=== PATIENT | male | born 1965 | race Caucasian/White ===

== ENCOUNTER 2022-06-13 11:53 | Inpatient (IN) | payer MEDICAID ==
[~2022-06-13] VITALS: Ht 160 cm; Wt 62.9 kg
[2022-06-13] MEDS ORDERED: PANTOPRAZOLE SODIUM 80 MG in SODIUM CHLORIDE 0.9% 100 ML IV SCH (12:15)
[2022-06-13] MEDS ORDERED: PANTOPRAZOLE SODIUM 40 MG/VIAL IVP ONE (12:15)
[2022-06-13] MEDS ORDERED: ONDANSETRON HCL 4 MG/2 ML VIAL IVP ONE (12:15)
[2022-06-13] MEDS ORDERED: SODIUM CHLORIDE 0.9% 2,000 ML IV ONE (12:15)
[2022-06-13 13:15] LABS: BASOPHILS % (AUTO) 0.2 % (0.0-2.0); EOSINOPHILS % (AUTO) 0 % (1.0-6.0); HEMATOCRIT 37.5 % (41-53); HEMOGLOBIN 12.7 g/dL (13.5-17.5); LYMPHOCYTES # (AUTO) 1.4 K/uL (1.0-4.8); LYMPHOCYTES % (AUTO) 10.5 % (22.0-44.0); MEAN CORPUSCULAR HEMOGLOBIN 29.8 pg (26.0-34.0); MEAN CORPUSCULAR HGB CONC 33.9 G/dL (31.0-37.0); MEAN CORPUSCULAR VOLUME 88 fL (80-100); MONOCYTES # (AUTO) 1.2 K/uL (0.1-1.0); MONOCYTES % (AUTO) 8.5 % (2.0-9.0); NEUTROPHILS # (AUTO) 11.1 K/uL (1.8-7.7); NEUTROPHILS % (AUTO) 80.8 % (40.0-70.0); PLATELET COUNT (AUTO) 331 K/uL (150-450); RED BLOOD CELL COUNT(AUTO) 4.26 MIL/uL (4.50-5.90); RED CELL DISTRIBUTION WIDTH 14.1 % (11.5-14.5)
[2022-06-13 13:25] LABS: COVID AG,FIA SOURCE NASOPHARYNGEAL
[2022-06-13 13:28] LABS: CALCIUM, TOTAL 8.7 mg/dL (8.8-10.5); CHLORIDE 82 mmol/L (98-107); GLUCOSE,RANDOM 145 mg/dL (70-110); POTASSIUM 3.1 mmol/L (3.5-5.1); SODIUM SERUM 138 mmol/L (136-145); UREA NITROGEN, BLOOD 76 mg/dL (7-18)
[2022-06-13 13:32] LABS: B-TYPE NATRIURETIC PEPTIDE 47 pg/mL (0-100)
[2022-06-13 13:34] LABS: ANION GAP 9 mmol/L (8-16); GLOMERULAR FILTR. RATE CALC 31 mL/min (>60)
[2022-06-13] MEDS ORDERED: SODIUM CHLORIDE 0.9% 1,000 ML IV ONE (13:45)
[2022-06-13 13:51] LABS: % IRON SATURATION 11.3 % (30-44); CARBON DIOXIDE 46 mmol/L (22-29); IRON, SERUM 37 mcg/dL (50-175); TOTAL IRON BINDING CAPACITY 326 mcg/dL (250-450)
[2022-06-13 13:53] LABS: LACTIC ACID 4.6 mmol/L (0.4-2.0)
[2022-06-13 13:54] LABS: ALANINE AMINOTRANSFERASE 12 U/L (12-78); ALKALINE PHOSPHATASE 45 U/L (46-116); ASPARTATE AMINOTRANSFERASE 14 U/L (15-37); CREATINE KINASE, TOTAL ONLY 84 U/L (39-308); TOTAL PROTEIN, SERUM 5.7 g/dL (6.4-8.2)
[2022-06-13 13:55] LABS: ALBUMIN 2.5 g/dL (3.4-5.0); LIPASE 58 U/L (73-393)
[2022-06-13] MEDS ORDERED: POTASSIUM CHL 10 MEQ/WATER 50 ML IV ONE (14:00)
[2022-06-13 14:14] LABS: INR 1.2 (0.9-1.1)
[2022-06-13] MEDS ORDERED: MORPHINE SULFATE 2 MG/ML SYRINGE IVP PRN (15:00)
[2022-06-13] MEDS ORDERED: BISACODYL 10 MG RECTAL RECTAL SUPPOSITORY PR PRN (15:00)
[2022-06-13] MEDS ORDERED: HYDROCODONE/ACETAMINOPHEN 5-325 MG TABLET PO PRN (15:00)
[2022-06-13] MEDS ORDERED: ZOLPIDEM TARTRATE 5 MG TABLET PO PRN (15:00)
[2022-06-13] MEDS ORDERED: ONDANSETRON HCL 4 MG/2 ML VIAL IVP PRN (15:00)
[2022-06-13] MEDS ORDERED: MAGNESIUM HYDROXIDE SUSPENSION 30 ML UDCUP PO PRN (15:00)
[2022-06-13] MEDS ORDERED: HEPARIN SODIUM,PORCINE 5,000 UNITS/ML VIAL SQ SCH (16:00)
[2022-06-13] MEDS ORDERED: SODIUM CHLORIDE 0.9% 250 ML IV ONE (19:30)
[2022-06-13 19:36] LABS: HEMATOCRIT 37.9 % (41-53); HEMOGLOBIN 12.6 g/dL (13.5-17.5)
[2022-06-13] MEDS: DOCUSATE SODIUM 100 MG CAPSULE PO SCH (20:39)
[2022-06-13] MEDS: PANTOPRAZOLE SODIUM 80 MG in SODIUM CHLORIDE 0.9% 100 ML IV SCH (23:42)
[2022-06-14] MEDS ORDERED: INFLUENZA VIRUS VACCINE QVS 2022-23 (6MO+)/PF 60 MCG/0.5 ML SYRINGE IM. ONE (00:30)
[2022-06-14 00:33] VITALS: BP 93/63
[2022-06-14 05:50] VITALS: BP 99/59
[2022-06-14 06:53] LABS: APPEARANCE,URINE CLEAR (CLEAR); BILIRUBIN,URINE NEGATIVE (NEGATIVE); GLUCOSE, URINE (UA) TRACE mg/dL (NEGATIVE); LEUKOCYTE ESTERASE ,URINE NEGATIVE (NEGATIVE); NITRATE,URINE NEGATIVE (NEGATIVE); OCCULT BLOOD,URINE NEGATIVE (NEGATIVE); PROTEIN,URINE TRACE mg/dL (NEGATIVE); SPECIFIC GRAVITIY, URINE 1.019 (1.003-1.030)
[2022-06-14 06:57] LABS: AMPHET/METH SCREEN,URINE NEGATIVE (NEGATIVE); BARBITURATE SCREEN, URINE NEGATIVE (NEGATIVE); BENZODIAZEPINES SCREEN,URINE NEGATIVE (NEGATIVE); CANNABINOID SCREEN,URINE NEGATIVE (NEGATIVE); COCAINE SCREEN,URINE NEGATIVE (NEGATIVE); METHADONE SCREEN, URINE NEGATIVE (NEGATIVE); OPIATE SCREEN,URINE NEGATIVE (NEGATIVE)
[2022-06-14 06:58] LABS: PHENCYCLIDINE SCREEN,URINE NEGATIVE (NEGATIVE)
[2022-06-14 07:12] LABS: BACTERIA,URINE None Seen /HPF (None Seen); RBC,URINE None Seen /HPF (0-2); WBC,URINE None Seen /HPF (0-5)
[2022-06-14 07:18] LABS: BASOPHILS % (AUTO) 0.3 % (0.0-2.0); EOSINOPHILS % (AUTO) 0.7 % (1.0-6.0); HEMATOCRIT 35.1 % (41-53); HEMOGLOBIN 11.8 g/dL (13.5-17.5); LYMPHOCYTES # (AUTO) 2.2 K/uL (1.0-4.8); LYMPHOCYTES % (AUTO) 25.7 % (22.0-44.0); MEAN CORPUSCULAR HEMOGLOBIN 29.9 pg (26.0-34.0); MEAN CORPUSCULAR HGB CONC 33.4 G/dL (31.0-37.0); MEAN CORPUSCULAR VOLUME 90 fL (80-100); MONOCYTES # (AUTO) 0.6 K/uL (0.1-1.0); MONOCYTES % (AUTO) 6.9 % (2.0-9.0); NEUTROPHILS # (AUTO) 5.6 K/uL (1.8-7.7); NEUTROPHILS % (AUTO) 66.4 % (40.0-70.0); PLATELET COUNT (AUTO) 247 K/uL (150-450); RED BLOOD CELL COUNT(AUTO) 3.93 MIL/uL (4.50-5.90); RED CELL DISTRIBUTION WIDTH 14.6 % (11.5-14.5)
[2022-06-14 07:48] LABS: CALCIUM, TOTAL 8.2 mg/dL (8.8-10.5); CREATININE 1.4 mg/dL (0.60-1.30)
[2022-06-14 07:55] VITALS: BP 85/52
[2022-06-14] MEDS: DOCUSATE SODIUM 100 MG CAPSULE PO SCH ×2 (08:57→20:26)
[2022-06-14] MEDS ORDERED: PANTOPRAZOLE SODIUM 40 MG DR TABLET PO SCH (09:00)
[2022-06-14] MEDS: PANTOPRAZOLE SODIUM 80 MG in SODIUM CHLORIDE 0.9% 100 ML IV SCH ×2 (09:07→18:35)
[2022-06-14 11:45] VITALS: BP 85/53
[2022-06-14] MEDS ORDERED: POTASSIUM CHLORIDE 10% 40 MEQ/30 ML LIQUID UDCUP PO ONE (13:45)
[2022-06-14 15:35] VITALS: BP 88/56
[2022-06-14] MEDS ORDERED: SODIUM CHLORIDE 0.9% 1,000 ML IV ONE (16:30)
[2022-06-14 19:57] VITALS: BP 94/59
[2022-06-14] MEDS ORDERED: DEXTROSE 5%-0.45% SODIUM CHL 1,000 ML IV PRN (23:55)
[2022-06-15 00:37] VITALS: BP 98/61
[2022-06-15 03:59] VITALS: BP 90/56
[2022-06-15] MEDS: PANTOPRAZOLE SODIUM 80 MG in SODIUM CHLORIDE 0.9% 100 ML IV SCH (04:29)
[2022-06-15 06:39] LABS: BASOPHILS % (AUTO) 0.4 % (0.0-2.0); EOSINOPHILS % (AUTO) 1.5 % (1.0-6.0); HEMATOCRIT 30.7 % (41-53); HEMOGLOBIN 10.5 g/dL (13.5-17.5); LYMPHOCYTES % (AUTO) 25.9 % (22.0-44.0); MEAN CORPUSCULAR HEMOGLOBIN 30.4 pg (26.0-34.0); MEAN CORPUSCULAR HGB CONC 34.3 G/dL (31.0-37.0); MEAN CORPUSCULAR VOLUME 89 fL (80-100); MONOCYTES # (AUTO) 0.5 K/uL (0.1-1.0); NEUTROPHILS # (AUTO) 5.2 K/uL (1.8-7.7); NEUTROPHILS % (AUTO) 66.2 % (40.0-70.0); PLATELET COUNT (AUTO) 226 K/uL (150-450); RED BLOOD CELL COUNT(AUTO) 3.46 MIL/uL (4.50-5.90); RED CELL DISTRIBUTION WIDTH 13.9 % (11.5-14.5)
[2022-06-15 06:42] LABS: ANION GAP 2 mmol/L (8-16); CALCIUM, TOTAL 8.1 mg/dL (8.8-10.5); CARBON DIOXIDE 39 mmol/L (22-29); CHLORIDE 93 mmol/L (98-107); CREATININE 1.04 mg/dL (0.60-1.30); GLUCOSE,RANDOM 109 mg/dL (70-110); SODIUM SERUM 134 mmol/L (136-145); UREA NITROGEN, BLOOD 30 mg/dL (7-18)
[2022-06-15 06:48] LABS: GLOMERULAR FILTR. RATE CALC > 60 mL/min (>60)
[2022-06-15 07:48] VITALS: BP 108/70
[2022-06-15] MEDS: DOCUSATE SODIUM 100 MG CAPSULE PO SCH ×2 (08:48→20:10)
[2022-06-15 11:24] VITALS: BP 90/56
[2022-06-15] MEDS ORDERED: SODIUM CHLORIDE 0.9% 1,000 ML ONE (12:39)
[2022-06-15] MEDS ORDERED: SODIUM CHLORIDE 0.9% 1,000 ML IV ONE (13:00)
[2022-06-15] MEDS ORDERED: IOHEXOL 350 MG/ML 100 ML VIAL ONE (15:27)
[2022-06-15] MEDS ORDERED: SODIUM CHLORIDE 0.9% 100 ML ONE (15:28)
[2022-06-15] MEDS: PANTOPRAZOLE SODIUM 40 MG/VIAL IVP SCH (20:10)
[2022-06-15 20:39] VITALS: BP 86/50
[2022-06-15] MEDS ORDERED: POTASSIUM CHLORIDE 20 MEQ ER TABLET PO ONE (21:00)
[2022-06-15] MEDS ORDERED: DEXTROSE 5%-0.45% SODIUM CHL 1,000 ML IV ONE (21:00)
[2022-06-15] MEDS ORDERED: SODIUM CHLORIDE 0.9% 250 ML IV ONE (21:00)
[2022-06-16] VITALS (7 sets, daily range): BP systolic 92–107; BP diastolic 50–72
[2022-06-16 06:20] LABS: BASOPHILS % (AUTO) 0.4 % (0.0-2.0); EOSINOPHILS % (AUTO) 1.6 % (1.0-6.0); HEMATOCRIT 29.8 % (41-53); HEMOGLOBIN 10.4 g/dL (13.5-17.5); LYMPHOCYTES # (AUTO) 1.8 K/uL (1.0-4.8); LYMPHOCYTES % (AUTO) 25.6 % (22.0-44.0); MEAN CORPUSCULAR HEMOGLOBIN 30.7 pg (26.0-34.0); MEAN CORPUSCULAR HGB CONC 34.7 G/dL (31.0-37.0); MEAN CORPUSCULAR VOLUME 88 fL (80-100); MONOCYTES # (AUTO) 0.5 K/uL (0.1-1.0); MONOCYTES % (AUTO) 6.3 % (2.0-9.0); NEUTROPHILS # (AUTO) 4.8 K/uL (1.8-7.7); NEUTROPHILS % (AUTO) 66.1 % (40.0-70.0); PLATELET COUNT (AUTO) 217 K/uL (150-450); RED BLOOD CELL COUNT(AUTO) 3.37 MIL/uL (4.50-5.90); RED CELL DISTRIBUTION WIDTH 14.1 % (11.5-14.5)
[2022-06-16 06:41] LABS: ANION GAP 5 mmol/L (8-16); CALCIUM, TOTAL 7.8 mg/dL (8.8-10.5); CARBON DIOXIDE 32 mmol/L (22-29); CHLORIDE 98 mmol/L (98-107); GLUCOSE,RANDOM 107 mg/dL (70-110); SODIUM SERUM 135 mmol/L (136-145); UREA NITROGEN, BLOOD 15 mg/dL (7-18)
[2022-06-16 07:01] LABS: GLOMERULAR FILTR. RATE CALC > 60 mL/min (>60); POTASSIUM 2.4 mmol/L (3.5-5.1)
[2022-06-16] MEDS: POTASSIUM CHL 10 MEQ/WATER 50 ML IV SCH ×6 (08:00→12:45)
[2022-06-16] MEDS: DOCUSATE SODIUM 100 MG CAPSULE PO SCH ×2 (09:00→20:26)
[2022-06-16] MEDS: PANTOPRAZOLE SODIUM 40 MG/VIAL IVP SCH ×2 (09:46→20:27)
[2022-06-16] MEDS ORDERED: MAGNESIUM SULFATE 2 GM, MVI, ADULT NO.1 WITH VIT K 10 ML, THIAMINE 100 MG, FOLIC ACID 1... IV ONE ×5 (10:30)
[2022-06-16 23:56] LABS: GLUCOMETER DEV NAME(LOC) 5N.1C; GLUCOSE,POINT OF CARE 71 MG/DL (70-110)
[2022-06-17] MEDS ORDERED: PROPOFOL 1% 20 ML VIAL IVP ONE (06:03)
[2022-06-17] MEDS ORDERED: LIDOCAINE/PF 2% 5 ML VIAL IM ONE (06:03)
[2022-06-17 07:42] VITALS: BP 102/62
[2022-06-17] MEDS: DOCUSATE SODIUM 100 MG CAPSULE PO SCH ×2 (08:28→21:35)
[2022-06-17] MEDS: PANTOPRAZOLE SODIUM 40 MG/VIAL IVP SCH ×2 (08:28→21:35)
[2022-06-17 11:21] VITALS: BP 103/70
[2022-06-17 15:46] VITALS: BP 100/68
[2022-06-17 20:11] VITALS: BP 95/66
[2022-06-18 00:30] VITALS: BP 105/67
[2022-06-18 04:48] VITALS: BP 100/60
[2022-06-18 07:42] VITALS: BP 104/69
[2022-06-18 08:00] VITALS: BP 114/71
[2022-06-18] MEDS: DOCUSATE SODIUM 100 MG CAPSULE PO SCH ×2 (09:00→20:35)
[2022-06-18] MEDS: PANTOPRAZOLE SODIUM 40 MG/VIAL IVP SCH ×2 (09:52→20:37)
[2022-06-18 15:55] VITALS: BP 107/67
[2022-06-18 20:12] VITALS: BP 115/91
[2022-06-19 04:11] VITALS: BP 99/62
[2022-06-19 07:41] VITALS: BP 105/47
[2022-06-19] MEDS: DOCUSATE SODIUM 100 MG CAPSULE PO SCH ×2 (09:00→20:54)
[2022-06-19] MEDS: PANTOPRAZOLE SODIUM 40 MG/VIAL IVP SCH ×2 (09:11→20:54)
[2022-06-19 15:30] VITALS: BP 122/86
[2022-06-19 20:00] VITALS: BP 108/73
[2022-06-20 05:23] VITALS: BP 111/78
[2022-06-20 08:12] VITALS: BP 94/64
[2022-06-20] MEDS ORDERED: SODIUM CHLORIDE 0.9% 1,000 ML ONE (08:37)
[2022-06-20] MEDS: DOCUSATE SODIUM 100 MG CAPSULE PO SCH ×2 (08:42→20:48)
[2022-06-20] MEDS: PANTOPRAZOLE SODIUM 40 MG/VIAL IVP SCH ×2 (08:42→20:38)
[2022-06-20] MEDS ORDERED: DEXTROSE 5%-0.45% SODIUM CHL 1,000 ML IV ONE (11:15)
[2022-06-20] MEDS: POTASSIUM CHL 20 MEQ/D5-NS 1,000 ML IV SCH ×2 (11:29→20:45)
[2022-06-20 16:07] VITALS: BP 87/51
[2022-06-20 19:20] VITALS: BP 99/65
[2022-06-21 04:06] VITALS: BP 111/77
[2022-06-21 05:48] LABS: HEMATOCRIT 27.5 % (41-53); HEMOGLOBIN 9.4 g/dL (13.5-17.5); MEAN CORPUSCULAR HEMOGLOBIN 30.5 pg (26.0-34.0); MEAN CORPUSCULAR HGB CONC 34.3 G/dL (31.0-37.0); MEAN CORPUSCULAR VOLUME 89 fL (80-100); PLATELET COUNT (AUTO) 207 K/uL (150-450); RED CELL DISTRIBUTION WIDTH 14.5 % (11.5-14.5)
[2022-06-21 06:04] LABS: ALANINE AMINOTRANSFERASE 10 U/L (12-78); ALBUMIN 1.7 g/dL (3.4-5.0); ALKALINE PHOSPHATASE 35 U/L (46-116); ANION GAP 5 mmol/L (8-16); ASPARTATE AMINOTRANSFERASE 12 U/L (15-37); BILIRUBIN,TOTAL 0.3 mg/dL (0.1-1.0); CALCIUM, TOTAL 7.4 mg/dL (8.8-10.5); CARBON DIOXIDE 26 mmol/L (22-29); CHLORIDE 110 mmol/L (98-107); CREATININE 0.63 mg/dL (0.60-1.30); GLUCOSE,RANDOM 149 mg/dL (70-110); POTASSIUM 4.3 mmol/L (3.5-5.1); SODIUM SERUM 141 mmol/L (136-145); TOTAL PROTEIN, SERUM 4.7 g/dL (6.4-8.2); UREA NITROGEN, BLOOD 13 mg/dL (7-18)
[2022-06-21 06:09] LABS: GLOMERULAR FILTR. RATE CALC > 60 mL/min (>60)
[2022-06-21] MEDS: POTASSIUM CHL 20 MEQ/D5-NS 1,000 ML IV SCH ×2 (06:26→21:45)
[2022-06-21 07:46] LABS: BAND NEUTROPHILS % (MANUAL) 4 % (0-5); LYMPHOCYTES % (MANUAL) 47 % (22-44); MONOCYTES % (MANUAL) 4 % (2-9); SEGMENTED NEUTROPHILS % 45 % (40-70)
[2022-06-21] MEDS: DOCUSATE SODIUM 100 MG CAPSULE PO SCH ×2 (07:48→21:00)
[2022-06-21 08:00] VITALS: BP 86/48
[2022-06-21] MEDS: PANTOPRAZOLE SODIUM 40 MG/VIAL IVP SCH ×2 (08:32→21:05)
[2022-06-21] MEDS ORDERED: HYDROmorphone HCL 2 MG/ML SYRINGE IVP ONE (12:00)
[2022-06-21] MEDS ORDERED: ROCURONIUM BROMIDE 10 MG/ML 5 ML VIAL IVP ONE (12:00)
[2022-06-21] MEDS ORDERED: FentaNYL CITRATE PF 100 MCG/2 ML VIAL IVP ONE (12:00)
[2022-06-21] MEDS ORDERED: KETOROLAC TROMETHAMINE 60 MG/2 ML VIAL IM ONE (12:00)
[2022-06-21] MEDS ORDERED: DEXAMETHASONE SOD PHOS 4 MG/ML VIAL IVP ONE (12:00)
[2022-06-21] MEDS ORDERED: EPHEDrine SULFATE 50 MG/ML VIAL IM ONE (12:00)
[2022-06-21] MEDS ORDERED: PHENYLEPHRINE HCL 10 MG/ML VIAL IVP ONE (12:00)
[2022-06-21] MEDS ORDERED: 0.9% SODIUM CHLORIDE 10 ML VIAL IVP ONE (12:00)
[2022-06-21] MEDS ORDERED: ONDANSETRON HCL 4 MG/2 ML VIAL IVP ONE (12:00)
[2022-06-21] MEDS ORDERED: LIDOCAINE/PF 2% 5 ML SYRINGE IVP ONE (12:00)
[2022-06-21] MEDS ORDERED: PROPOFOL 1% 20 ML VIAL IVP ONE (12:00)
[2022-06-21] MEDS ORDERED: MIDAZOLAM HCL 2 MG/2 ML VIAL IVP ONE (12:00)
[2022-06-21] MEDS ORDERED: RINGERS SOLUTION,LACTATED 1,000 ML IV ONE ×5 (12:13→15:49)
[2022-06-21 12:39] VITALS: BP 96/62
[2022-06-21] MEDS ORDERED: BUPIVACAINE HCL/PF 0.5% 30 ML VIAL ONE ×2 (12:39→14:42)
[2022-06-21] MEDS ORDERED: BUPIVACAINE LIPOSOME/PF 1.3%-13.3MG/ML SUSPENSION 20 ML VIAL INJ ONE (12:45)
[2022-06-21] MEDS ORDERED: LIDOCAINE/PF 2% 5 ML VIAL ONE (14:03)
[2022-06-21] MEDS ORDERED: PHENYLEPHRINE 200 MG/D5%-WATER 250 ML IV PRN (15:00)
[2022-06-21] MEDS ORDERED: ALBUMIN HUMAN 25%-12.5GM/50ML 50 ML ONE (15:31)
[2022-06-21] MEDS ORDERED: ALBUMIN HUMAN 5%-12.5GM/250ML 0 ML IV ONE (15:31)
[2022-06-21] MEDS ORDERED: SODIUM CHLORIDE 0.9% 1,000 ML ONE (15:49)
[2022-06-21] MEDS ORDERED: FentaNYL CITRATE PF 100 MCG/2 ML VIAL IVP PRN (17:30)
[2022-06-21] MEDS ORDERED: HYDROmorphone HCL 2 MG/ML SYRINGE IVP PRN ×2 (17:30→19:15)
[2022-06-21] MEDS ORDERED: MEPERIDINE-PF 25 MG/ML VIAL IVP PRN (17:30)
[2022-06-21] MEDS ORDERED: SUGAMMADEX SODIUM 200 MG/2 ML VIAL IVP ONE (18:56)
[2022-06-21] MEDS: OXYGEN THERAPY IH SCH (20:00)
[2022-06-21 20:15] VITALS: BP 89/62
[2022-06-21] MEDS: ETHYL ALCOHOL 62% ANTISEPTIC NASAL SANITIZER 0.6 ML AMPUL NASAL SCH (21:45)
[2022-06-22] VITALS: BP 95/60
[2022-06-22 04:00] VITALS: BP 84/52
[2022-06-22] MEDS: POTASSIUM CHL 20 MEQ/D5-NS 1,000 ML IV SCH ×2 (06:58→18:55)
[2022-06-22 08:00] VITALS: BP 104/69
[2022-06-22] MEDS: OXYGEN THERAPY IH SCH ×2 (08:00→20:51)
[2022-06-22] MEDS: DOCUSATE SODIUM 100 MG CAPSULE PO SCH ×3 (09:00→20:52)
[2022-06-22] MEDS: PANTOPRAZOLE SODIUM 40 MG/VIAL IVP SCH ×3 (09:00→20:52)
[2022-06-22] MEDS: ETHYL ALCOHOL 62% ANTISEPTIC NASAL SANITIZER 0.6 ML AMPUL NASAL SCH ×2 (09:20→20:52)
[2022-06-22 10:01] LABS: BASOPHILS % (AUTO) 0.1 % (0.0-2.0); EOSINOPHILS % (AUTO) 0 % (1.0-6.0); HEMATOCRIT 22.9 % (41-53); HEMOGLOBIN 7.7 g/dL (13.5-17.5); LYMPHOCYTES # (AUTO) 1.2 K/uL (1.0-4.8); LYMPHOCYTES % (AUTO) 11.5 % (22.0-44.0); MEAN CORPUSCULAR HEMOGLOBIN 30.3 pg (26.0-34.0); MEAN CORPUSCULAR HGB CONC 33.8 G/dL (31.0-37.0); MEAN CORPUSCULAR VOLUME 90 fL (80-100); MONOCYTES # (AUTO) 0.8 K/uL (0.1-1.0); MONOCYTES % (AUTO) 7.4 % (2.0-9.0); NEUTROPHILS # (AUTO) 8.7 K/uL (1.8-7.7); PLATELET COUNT (AUTO) 237 K/uL (150-450); RED BLOOD CELL COUNT(AUTO) 2.55 MIL/uL (4.50-5.90)
[2022-06-22 10:14] LABS: ANION GAP 1 mmol/L (8-16); CARBON DIOXIDE 27 mmol/L (22-29); CHLORIDE 111 mmol/L (98-107); CREATININE 0.81 mg/dL (0.60-1.30); GLUCOSE,RANDOM 165 mg/dL (70-110); POTASSIUM 4.4 mmol/L (3.5-5.1); SODIUM SERUM 139 mmol/L (136-145); UREA NITROGEN, BLOOD 14 mg/dL (7-18)
[2022-06-22 10:16] LABS: GLOMERULAR FILTR. RATE CALC > 60 mL/min (>60)
[2022-06-22 13:46] VITALS: BP 107/73
[2022-06-22 14:50] VITALS: BP 99/74
[2022-06-22 20:21] VITALS: BP 98/52
[2022-06-23] VITALS: BP 96/55
[2022-06-23] MEDS: POTASSIUM CHL 20 MEQ/D5-NS 1,000 ML IV SCH ×4 (04:53→23:37)
[2022-06-23 05:12] VITALS: BP 106/69
[2022-06-23 07:17] VITALS: BP 125/75
[2022-06-23] MEDS: PANTOPRAZOLE SODIUM 40 MG/VIAL IVP SCH ×3 (09:00→21:13)
[2022-06-23] MEDS: OXYGEN THERAPY IH SCH ×2 (09:04→21:13)
[2022-06-23] MEDS: DOCUSATE SODIUM 100 MG CAPSULE PO SCH ×2 (09:10→21:13)
[2022-06-23] MEDS: ETHYL ALCOHOL 62% ANTISEPTIC NASAL SANITIZER 0.6 ML AMPUL NASAL SCH ×2 (09:10→21:13)
[2022-06-23 09:16] LABS: BASOPHILS % (AUTO) 0.1 % (0.0-2.0); EOSINOPHILS % (AUTO) 0.1 % (1.0-6.0); HEMATOCRIT 22.4 % (41-53); HEMOGLOBIN 7.5 g/dL (13.5-17.5); LYMPHOCYTES # (AUTO) 1.5 K/uL (1.0-4.8); LYMPHOCYTES % (AUTO) 11.6 % (22.0-44.0); MEAN CORPUSCULAR HEMOGLOBIN 30.1 pg (26.0-34.0); MEAN CORPUSCULAR HGB CONC 33.5 G/dL (31.0-37.0); MEAN CORPUSCULAR VOLUME 90 fL (80-100); MONOCYTES # (AUTO) 0.8 K/uL (0.1-1.0); MONOCYTES % (AUTO) 6.6 % (2.0-9.0); NEUTROPHILS # (AUTO) 10.5 K/uL (1.8-7.7); NEUTROPHILS % (AUTO) 81.6 % (40.0-70.0); PLATELET COUNT (AUTO) 280 K/uL (150-450); RED BLOOD CELL COUNT(AUTO) 2.49 MIL/uL (4.50-5.90); RED CELL DISTRIBUTION WIDTH 15.3 % (11.5-14.5)
[2022-06-23 09:24] LABS: ANION GAP 5 mmol/L (8-16); CALCIUM, TOTAL 7.4 mg/dL (8.8-10.5); CARBON DIOXIDE 24 mmol/L (22-29); CHLORIDE 112 mmol/L (98-107); CREATININE 0.65 mg/dL (0.60-1.30); GLUCOSE,RANDOM 147 mg/dL (70-110); POTASSIUM 4.9 mmol/L (3.5-5.1); SODIUM SERUM 141 mmol/L (136-145); UREA NITROGEN, BLOOD 12 mg/dL (7-18)
[2022-06-23 09:26] LABS: GLOMERULAR FILTR. RATE CALC > 60 mL/min (>60)
[2022-06-23 11:19] VITALS: BP 118/77
[2022-06-23 12:26] LABS: GLUCOMETER DEV NAME(LOC) 5N.1C; GLUCOSE,POINT OF CARE 121 MG/DL (70-110)
[2022-06-23 13:00] LABS: PHOSPHORUS 2.4 mg/dL (2.5-4.9)
[2022-06-23] MEDS ORDERED: MAGNESIUM SULFATE 1 GM in DEXTROSE 5%-WATER 50 ML IV ONE (15:15)
[2022-06-23 15:18] VITALS: BP 110/72
[2022-06-23] MEDS ORDERED: POTASSIUM PHOS,M-BASIC-D-BASIC 10 MMOL in DEXTROSE 5%-WATER 100 ML IV ONE (16:00)
[2022-06-23] MEDS ORDERED: SODIUM CHLORIDE 0.9% 500 ML IV ONE (16:30)
[2022-06-23 20:01] LABS: GLUCOMETER DEV NAME(LOC) 5N.1C; GLUCOSE,POINT OF CARE 129 MG/DL (70-110)
[2022-06-23 20:10] VITALS: BP 119/74
[2022-06-24 00:45] VITALS: BP 122/74
[2022-06-24 04:36] LABS: GLUCOMETER DEV NAME(LOC) 5N.1C; GLUCOSE,POINT OF CARE 123 MG/DL (70-110)
[2022-06-24 04:41] VITALS: BP 117/76
[2022-06-24 06:46] LABS: GLUCOMETER DEV NAME(LOC) 5N.1C; GLUCOSE,POINT OF CARE 141 MG/DL (70-110)
[2022-06-24] MEDS: OXYGEN THERAPY IH SCH ×2 (08:00→22:01)
[2022-06-24 08:10] VITALS: BP 119/80
[2022-06-24] MEDS: PANTOPRAZOLE SODIUM 40 MG/VIAL IVP SCH ×3 (09:00→22:02)
[2022-06-24] MEDS: DOCUSATE SODIUM 100 MG CAPSULE PO SCH ×2 (09:00→22:02)
[2022-06-24] MEDS: ETHYL ALCOHOL 62% ANTISEPTIC NASAL SANITIZER 0.6 ML AMPUL NASAL SCH ×2 (09:19→22:01)
[2022-06-24 09:37] LABS: BASOPHILS % (AUTO) 0.2 % (0.0-2.0); EOSINOPHILS % (AUTO) 0.4 % (1.0-6.0); HEMATOCRIT 21.4 % (41-53); HEMOGLOBIN 7.3 g/dL (13.5-17.5); LYMPHOCYTES # (AUTO) 1.3 K/uL (1.0-4.8); LYMPHOCYTES % (AUTO) 10.4 % (22.0-44.0); MEAN CORPUSCULAR HEMOGLOBIN 30.2 pg (26.0-34.0); MEAN CORPUSCULAR VOLUME 89 fL (80-100); MONOCYTES # (AUTO) 0.5 K/uL (0.1-1.0); MONOCYTES % (AUTO) 4.2 % (2.0-9.0); NEUTROPHILS # (AUTO) 10.7 K/uL (1.8-7.7); NEUTROPHILS % (AUTO) 84.8 % (40.0-70.0); PLATELET COUNT (AUTO) 300 K/uL (150-450); RED BLOOD CELL COUNT(AUTO) 2.41 MIL/uL (4.50-5.90); RED CELL DISTRIBUTION WIDTH 15.3 % (11.5-14.5)
[2022-06-24 09:46] LABS: ANION GAP 5 mmol/L (8-16); CALCIUM, TOTAL 7.3 mg/dL (8.8-10.5); CARBON DIOXIDE 24 mmol/L (22-29); CHLORIDE 107 mmol/L (98-107); CREATININE 0.57 mg/dL (0.60-1.30); GLOMERULAR FILTR. RATE CALC > 60 mL/min (>60); GLUCOSE,RANDOM 141 mg/dL (70-110); SODIUM SERUM 136 mmol/L (136-145); UREA NITROGEN, BLOOD 8 mg/dL (7-18)
[2022-06-24 11:40] VITALS: BP 136/73
[2022-06-24 14:17] LABS: GLUCOMETER DEV NAME(LOC) 5S.1B; GLUCOSE,POINT OF CARE 133 MG/DL (70-110)
[2022-06-24 14:51] VITALS: BP 101/65
[2022-06-24 18:46] LABS: GLUCOMETER DEV NAME(LOC) 5N.1C; GLUCOSE,POINT OF CARE 118 MG/DL (70-110)
[2022-06-24 20:14] VITALS: BP 101/62
[2022-06-25 00:23] VITALS: BP 103/70
[2022-06-25 04:29] VITALS: BP 98/61
[2022-06-25 06:47] LABS: GLUCOMETER DEV NAME(LOC) 5S.1B; GLUCOSE,POINT OF CARE 117 MG/DL (70-110)
[2022-06-25 06:47] LABS: GLUCOMETER DEV NAME(LOC) 5S.1B; GLUCOSE,POINT OF CARE 123 MG/DL (70-110)
[2022-06-25 07:49] VITALS: BP 117/67
[2022-06-25] MEDS: ETHYL ALCOHOL 62% ANTISEPTIC NASAL SANITIZER 0.6 ML AMPUL NASAL SCH ×2 (07:56→20:32)
[2022-06-25] MEDS: PANTOPRAZOLE SODIUM 40 MG/VIAL IVP SCH ×3 (08:11→20:32)
[2022-06-25] MEDS: OXYGEN THERAPY IH SCH ×2 (08:11→20:31)
[2022-06-25 09:50] LABS: BASOPHILS % (AUTO) 0.2 % (0.0-2.0); EOSINOPHILS % (AUTO) 0.5 % (1.0-6.0); HEMATOCRIT 23.2 % (41-53); HEMOGLOBIN 7.8 g/dL (13.5-17.5); LYMPHOCYTES # (AUTO) 1.7 K/uL (1.0-4.8); MEAN CORPUSCULAR HGB CONC 33.5 G/dL (31.0-37.0); MEAN CORPUSCULAR VOLUME 90 fL (80-100); MONOCYTES # (AUTO) 0.6 K/uL (0.1-1.0); MONOCYTES % (AUTO) 4.7 % (2.0-9.0); NEUTROPHILS # (AUTO) 10.4 K/uL (1.8-7.7); NEUTROPHILS % (AUTO) 81.6 % (40.0-70.0); PLATELET COUNT (AUTO) 383 K/uL (150-450); RED CELL DISTRIBUTION WIDTH 14.8 % (11.5-14.5)
[2022-06-25 10:18] LABS: ANION GAP 9 mmol/L (8-16); CALCIUM, TOTAL 7.4 mg/dL (8.8-10.5); CARBON DIOXIDE 23 mmol/L (22-29); CHLORIDE 103 mmol/L (98-107); CREATININE 0.61 mg/dL (0.60-1.30); GLUCOSE,RANDOM 136 mg/dL (70-110); POTASSIUM 4.1 mmol/L (3.5-5.1); SODIUM SERUM 135 mmol/L (136-145); UREA NITROGEN, BLOOD 13 mg/dL (7-18)
[2022-06-25 10:23] LABS: GLOMERULAR FILTR. RATE CALC > 60 mL/min (>60)
[2022-06-25 11:53] VITALS: BP 96/56
[2022-06-25 16:07] VITALS: BP 94/61
[2022-06-25 18:01] LABS: GLUCOMETER DEV NAME(LOC) 5N.1C; GLUCOSE,POINT OF CARE 130 MG/DL (70-110)
[2022-06-25] MEDS: DOCUSATE SODIUM 100 MG/10 ML LIQUID UDCUP JT SCH (20:32)
[2022-06-25 20:33] VITALS: BP 115/63
[2022-06-26] VITALS (7 sets, daily range): BP systolic 91–105; BP diastolic 55–68
[2022-06-26] MEDS ORDERED: DIATRIZOATE MEGLU/SOD 660/100 MG/ML 120 ML BOTTLE ONE (08:08)
[2022-06-26] MEDS: PANTOPRAZOLE SODIUM 40 MG/VIAL IVP SCH ×2 (08:29→20:16)
[2022-06-26] MEDS: ETHYL ALCOHOL 62% ANTISEPTIC NASAL SANITIZER 0.6 ML AMPUL NASAL SCH ×2 (08:34→20:16)
[2022-06-26] MEDS: DOCUSATE SODIUM 100 MG/10 ML LIQUID UDCUP JT SCH ×2 (08:38→20:16)
[2022-06-26 08:50] LABS: BASOPHILS % (AUTO) 0.2 % (0.0-2.0); EOSINOPHILS % (AUTO) 0.7 % (1.0-6.0); HEMATOCRIT 21.6 % (41-53); HEMOGLOBIN 7.4 g/dL (13.5-17.5); LYMPHOCYTES # (AUTO) 1.6 K/uL (1.0-4.8); LYMPHOCYTES % (AUTO) 15.9 % (22.0-44.0); MEAN CORPUSCULAR HEMOGLOBIN 30.2 pg (26.0-34.0); MEAN CORPUSCULAR HGB CONC 34.3 G/dL (31.0-37.0); MEAN CORPUSCULAR VOLUME 88 fL (80-100); MONOCYTES # (AUTO) 0.6 K/uL (0.1-1.0); MONOCYTES % (AUTO) 6.3 % (2.0-9.0); NEUTROPHILS # (AUTO) 7.6 K/uL (1.8-7.7); NEUTROPHILS % (AUTO) 76.9 % (40.0-70.0); PLATELET COUNT (AUTO) 338 K/uL (150-450); RED BLOOD CELL COUNT(AUTO) 2.45 MIL/uL (4.50-5.90); RED CELL DISTRIBUTION WIDTH 14.9 % (11.5-14.5)
[2022-06-26] MEDS: OXYGEN THERAPY IH SCH ×2 (08:52→20:16)
[2022-06-26 09:06] LABS: ALKALINE PHOSPHATASE 65 U/L (46-116); ANION GAP 7 mmol/L (8-16); CALCIUM, TOTAL 7.8 mg/dL (8.8-10.5); CARBON DIOXIDE 25 mmol/L (22-29); CHLORIDE 103 mmol/L (98-107); CREATININE 0.77 mg/dL (0.60-1.30); GLUCOSE,RANDOM 138 mg/dL (70-110); POTASSIUM 4.9 mmol/L (3.5-5.1); SODIUM SERUM 135 mmol/L (136-145); UREA NITROGEN, BLOOD 23 mg/dL (7-18)
[2022-06-26 09:08] LABS: GLOMERULAR FILTR. RATE CALC > 60 mL/min (>60)
[2022-06-26 11:26] LABS: GLUCOMETER DEV NAME(LOC) 5N.1C; GLUCOSE,POINT OF CARE 113 MG/DL (70-110)
[2022-06-27] MEDS: ACETAMINOPHEN 325 MG TABLET PO PRN (00:17)
[2022-06-27 04:27] VITALS: BP 101/59
[2022-06-27 07:30] VITALS: BP 97/59
[2022-06-27] MEDS: ETHYL ALCOHOL 62% ANTISEPTIC NASAL SANITIZER 0.6 ML AMPUL NASAL SCH ×2 (08:50→20:21)
[2022-06-27] MEDS: DOCUSATE SODIUM 100 MG/10 ML LIQUID UDCUP JT SCH ×2 (08:50→20:21)
[2022-06-27] MEDS: OXYGEN THERAPY IH SCH ×2 (08:50→20:21)
[2022-06-27] MEDS: PANTOPRAZOLE SODIUM 40 MG/VIAL IVP SCH ×2 (08:50→20:21)
[2022-06-27 09:44] LABS: MAGNESIUM 1.7 mg/dL (1.80-2.40)
[2022-06-27 13:20] LABS: PHOSPHORUS 3.8 mg/dL (2.5-4.9)
[2022-06-27] MEDS: METOCLOPRAMIDE HCL 5 MG/ML 2 ML VIAL IVP SCH (18:15)
[2022-06-27 19:55] VITALS: BP 112/69
[2022-06-27 23:50] VITALS: BP 106/64
[2022-06-28] MEDS: METOCLOPRAMIDE HCL 5 MG/ML 2 ML VIAL IVP SCH ×5 (00:05→23:53)
[2022-06-28 04:00] VITALS: BP 104/61
[2022-06-28 07:21] VITALS: BP 97/60
[2022-06-28] MEDS: DOCUSATE SODIUM 100 MG/10 ML LIQUID UDCUP JT SCH ×2 (09:04→20:48)
[2022-06-28] MEDS: THIAMINE 100 MG TABLET NG SCH (09:04)
[2022-06-28] MEDS: MULTIVITAMINS WITH MINERALS, THERAPEUTIC 15 ML UDCUP NG SCH (09:04)
[2022-06-28] MEDS: ETHYL ALCOHOL 62% ANTISEPTIC NASAL SANITIZER 0.6 ML AMPUL NASAL SCH ×2 (09:04→20:48)
[2022-06-28] MEDS: PANTOPRAZOLE SODIUM 40 MG/VIAL IVP SCH ×2 (09:05→20:48)
[2022-06-28] MEDS: OXYGEN THERAPY IH SCH ×2 (09:05→20:46)
[2022-06-28 11:47] VITALS: BP 100/62
[2022-06-28] MEDS ORDERED: MAGNESIUM SULFATE 2 GM/WATER 50 ML IV PRN (12:30)
[2022-06-28] MEDS ORDERED: MAGNESIUM SULFATE 4 GM/WATER 100 ML IV PRN (12:30)
[2022-06-28 15:22] VITALS: BP 108/65
[2022-06-28 20:00] VITALS: BP 92/53
[2022-06-28 23:47] LABS: GLUCOMETER DEV NAME(LOC) 5N.1C; GLUCOSE,POINT OF CARE 120 MG/DL (70-110)
[2022-06-28 23:47] LABS: GLUCOMETER DEV NAME(LOC) 5N.1C; GLUCOSE,POINT OF CARE 115 MG/DL (70-110)
[2022-06-28 23:47] LABS: GLUCOMETER DEV NAME(LOC) 5S.1B; GLUCOSE,POINT OF CARE 116 MG/DL (70-110)
[2022-06-28 23:47] LABS: GLUCOMETER DEV NAME(LOC) 5S.1B; GLUCOSE,POINT OF CARE 109 MG/DL (70-110)
[2022-06-28 23:48] LABS: GLUCOMETER DEV NAME(LOC) 5S.1B; GLUCOSE,POINT OF CARE 133 MG/DL (70-110)
[2022-06-28 23:48] LABS: GLUCOMETER DEV NAME(LOC) 5S.2B; GLUCOSE,POINT OF CARE 118 MG/DL (70-110)
[2022-06-28 23:48] LABS: GLUCOMETER DEV NAME(LOC) 5S.2B; GLUCOSE,POINT OF CARE 120 MG/DL (70-110)
[2022-06-29] VITALS (14 sets, daily range): BP systolic 99–128; BP diastolic 60–92
[2022-06-29 00:36] LABS: GLUCOMETER DEV NAME(LOC) 5N.1C; GLUCOSE,POINT OF CARE 124 MG/DL (70-110)
[2022-06-29] MEDS: METOCLOPRAMIDE HCL 5 MG/ML 2 ML VIAL IVP SCH ×4 (05:48→23:25)
[2022-06-29 06:59] LABS: ANION GAP 4 mmol/L (8-16); CALCIUM, TOTAL 7.7 mg/dL (8.8-10.5); CARBON DIOXIDE 28 mmol/L (22-29); CHLORIDE 104 mmol/L (98-107); CREATININE 0.62 mg/dL (0.60-1.30); GLUCOSE,RANDOM 145 mg/dL (70-110); POTASSIUM 4.2 mmol/L (3.5-5.1); SODIUM SERUM 136 mmol/L (136-145); UREA NITROGEN, BLOOD 11 mg/dL (7-18)
[2022-06-29 07:02] LABS: GLOMERULAR FILTR. RATE CALC > 60 mL/min (>60)
[2022-06-29 07:12] LABS: BASOPHILS % (AUTO) 0.7 % (0.0-2.0); EOSINOPHILS % (AUTO) 3.2 % (1.0-6.0); LYMPHOCYTES # (AUTO) 1.7 K/uL (1.0-4.8); LYMPHOCYTES % (AUTO) 25.7 % (22.0-44.0); MEAN CORPUSCULAR HEMOGLOBIN 29.8 pg (26.0-34.0); MEAN CORPUSCULAR HGB CONC 34.2 G/dL (31.0-37.0); MEAN CORPUSCULAR VOLUME 87 fL (80-100); MONOCYTES # (AUTO) 0.4 K/uL (0.1-1.0); MONOCYTES % (AUTO) 5.8 % (2.0-9.0); NEUTROPHILS # (AUTO) 4.4 K/uL (1.8-7.7); NEUTROPHILS % (AUTO) 64.6 % (40.0-70.0); PLATELET COUNT (AUTO) 365 K/uL (150-450); RED BLOOD CELL COUNT(AUTO) 2.24 MIL/uL (4.50-5.90); RED CELL DISTRIBUTION WIDTH 14.9 % (11.5-14.5)
[2022-06-29 07:33] LABS: HEMOGLOBIN 6.7 g/dL (13.5-17.5)
[2022-06-29 07:36] LABS: HEMATOCRIT 19.6 % (41-53)
[2022-06-29] MEDS: OXYGEN THERAPY IH SCH ×2 (08:00→20:25)
[2022-06-29] MEDS ORDERED: SODIUM CHLORIDE 0.9% 500 ML IV ONE (08:05)
[2022-06-29] MEDS: DOCUSATE SODIUM 100 MG/10 ML LIQUID UDCUP JT SCH ×2 (09:00→20:26)
[2022-06-29] MEDS: MULTIVITAMINS WITH MINERALS, THERAPEUTIC 15 ML UDCUP NG SCH (09:39)
[2022-06-29] MEDS: PANTOPRAZOLE SODIUM 40 MG/VIAL IVP SCH ×2 (09:40→20:26)
[2022-06-29] MEDS: THIAMINE 100 MG TABLET NG SCH (09:40)
[2022-06-29] MEDS: ETHYL ALCOHOL 62% ANTISEPTIC NASAL SANITIZER 0.6 ML AMPUL NASAL SCH ×2 (09:40→20:26)
[2022-06-29 13:51] LABS: GLUCOMETER DEV NAME(LOC) 6N.2B; GLUCOSE,POINT OF CARE 145 MG/DL (70-110)
[2022-06-29 18:36] LABS: HEMATOCRIT 25.2 % (41-53); HEMOGLOBIN 8.7 g/dL (13.5-17.5)
[2022-06-29 21:56] LABS: GLUCOMETER DEV NAME(LOC) 6N.2B; GLUCOSE,POINT OF CARE 133 MG/DL (70-110)
[2022-06-30 04:17] LABS: GLUCOMETER DEV NAME(LOC) 6N.2B; GLUCOSE,POINT OF CARE 138 MG/DL (70-110)
[2022-06-30] MEDS: METOCLOPRAMIDE HCL 5 MG/ML 2 ML VIAL IVP SCH ×4 (05:31→23:37)
[2022-06-30 07:16] LABS: GLUCOMETER DEV NAME(LOC) 6N.2B; GLUCOSE,POINT OF CARE 130 MG/DL (70-110)
[2022-06-30 07:37] VITALS: BP 108/64
[2022-06-30] MEDS: OXYGEN THERAPY IH SCH (08:00)
[2022-06-30] MEDS: ETHYL ALCOHOL 62% ANTISEPTIC NASAL SANITIZER 0.6 ML AMPUL NASAL SCH ×2 (08:53→20:08)
[2022-06-30] MEDS: THIAMINE 100 MG TABLET NG SCH (08:53)
[2022-06-30] MEDS: MULTIVITAMINS WITH MINERALS, THERAPEUTIC 15 ML UDCUP NG SCH (08:53)
[2022-06-30] MEDS: PANTOPRAZOLE SODIUM 40 MG/VIAL IVP SCH ×2 (08:53→20:02)
[2022-06-30] MEDS: DOCUSATE SODIUM 100 MG/10 ML LIQUID UDCUP JT SCH ×2 (08:54→20:33)
[2022-06-30 13:26] LABS: GLUCOMETER DEV NAME(LOC) 6N.2B; GLUCOSE,POINT OF CARE 132 MG/DL (70-110)
[2022-06-30 15:28] VITALS: BP 108/67
[2022-06-30 20:16] LABS: GLUCOMETER DEV NAME(LOC) 6N.2B; GLUCOSE,POINT OF CARE 118 MG/DL (70-110)
[2022-06-30 20:20] VITALS: BP 99/63
[2022-07-01 04:51] VITALS: BP 105/68
[2022-07-01] MEDS: METOCLOPRAMIDE HCL 5 MG/ML 2 ML VIAL IVP SCH ×4 (06:06→23:38)
[2022-07-01] MEDS: OXYGEN THERAPY IH SCH (08:00)
[2022-07-01 08:32] VITALS: BP 123/63
[2022-07-01] MEDS: ETHYL ALCOHOL 62% ANTISEPTIC NASAL SANITIZER 0.6 ML AMPUL NASAL SCH ×2 (09:28→21:09)
[2022-07-01] MEDS: MULTIVITAMINS WITH MINERALS, THERAPEUTIC 15 ML UDCUP NG SCH (09:28)
[2022-07-01] MEDS: DOCUSATE SODIUM 100 MG/10 ML LIQUID UDCUP JT SCH ×2 (09:28→21:00)
[2022-07-01] MEDS: THIAMINE 100 MG TABLET NG SCH (09:29)
[2022-07-01] MEDS: PANTOPRAZOLE SODIUM 40 MG/VIAL IVP SCH ×2 (09:29→21:08)
[2022-07-01 16:18] VITALS: BP 121/74
[2022-07-01 20:40] VITALS: BP 103/64
[2022-07-01 23:17] LABS: GLUCOMETER DEV NAME(LOC) 6N.2B; GLUCOSE,POINT OF CARE 143 MG/DL (70-110)
[2022-07-01 23:17] LABS: GLUCOMETER DEV NAME(LOC) 6N.1; GLUCOSE,POINT OF CARE 186 MG/DL (70-110)
[2022-07-01 23:17] LABS: GLUCOMETER DEV NAME(LOC) 6N.1; GLUCOSE,POINT OF CARE 100 MG/DL (70-110)
[2022-07-01 23:17] LABS: GLUCOMETER DEV NAME(LOC) 6N.1; GLUCOSE,POINT OF CARE 101 MG/DL (70-110)
[2022-07-02 04:48] VITALS: BP 124/70
[2022-07-02] MEDS: METOCLOPRAMIDE HCL 5 MG/ML 2 ML VIAL IVP SCH ×4 (05:44→23:32)
[2022-07-02 07:26] VITALS: BP 107/70
[2022-07-02] MEDS: DOCUSATE SODIUM 100 MG/10 ML LIQUID UDCUP JT SCH ×2 (09:00→20:01)
[2022-07-02] MEDS: THIAMINE 100 MG TABLET NG SCH (09:15)
[2022-07-02] MEDS: PANTOPRAZOLE SODIUM 40 MG/VIAL IVP SCH ×2 (09:15→20:01)
[2022-07-02] MEDS: MULTIVITAMINS WITH MINERALS, THERAPEUTIC 15 ML UDCUP NG SCH (09:15)
[2022-07-02] MEDS: ETHYL ALCOHOL 62% ANTISEPTIC NASAL SANITIZER 0.6 ML AMPUL NASAL SCH ×2 (12:24→20:01)
[2022-07-02 15:34] VITALS: BP 117/73
[2022-07-02 17:56] LABS: GLUCOMETER DEV NAME(LOC) 6N.2B; GLUCOSE,POINT OF CARE 154 MG/DL (70-110)
[2022-07-02 19:14] VITALS: BP 101/59
[2022-07-03 03:06] LABS: GLUCOMETER DEV NAME(LOC) 6N.1; GLUCOSE,POINT OF CARE 107 MG/DL (70-110)
[2022-07-03 03:06] LABS: GLUCOMETER DEV NAME(LOC) 6N.2B; GLUCOSE,POINT OF CARE 145 MG/DL (70-110)
[2022-07-03 03:06] LABS: GLUCOMETER DEV NAME(LOC) 6N.1; GLUCOSE,POINT OF CARE 102 MG/DL (70-110)
[2022-07-03 05:00] VITALS: BP 106/70
[2022-07-03] MEDS: METOCLOPRAMIDE HCL 5 MG/ML 2 ML VIAL IVP SCH ×4 (06:13→23:17)
[2022-07-03 08:00] VITALS: BP 110/65
[2022-07-03] MEDS: ETHYL ALCOHOL 62% ANTISEPTIC NASAL SANITIZER 0.6 ML AMPUL NASAL SCH ×2 (08:48→20:04)
[2022-07-03] MEDS: THIAMINE 100 MG TABLET NG SCH (08:48)
[2022-07-03] MEDS: MULTIVITAMINS WITH MINERALS, THERAPEUTIC 15 ML UDCUP NG SCH (08:49)
[2022-07-03] MEDS: DOCUSATE SODIUM 100 MG/10 ML LIQUID UDCUP JT SCH ×3 (09:00→20:18)
[2022-07-03] MEDS: PANTOPRAZOLE SODIUM 40 MG/VIAL IVP SCH ×2 (12:07→20:04)
[2022-07-03 15:31] LABS: GLUCOMETER DEV NAME(LOC) 6N.1; GLUCOSE,POINT OF CARE 142 MG/DL (70-110)
[2022-07-03 15:36] VITALS: BP 114/70
[2022-07-03 16:51] LABS: GLUCOMETER DEV NAME(LOC) 6N.2B; GLUCOSE,POINT OF CARE 150 MG/DL (70-110)
[2022-07-03 19:28] VITALS: BP 129/50
[2022-07-03 19:41] LABS: GLUCOMETER DEV NAME(LOC) 6N.2B; GLUCOSE,POINT OF CARE 103 MG/DL (70-110)
[2022-07-03 20:02] LABS: GLUCOMETER DEV NAME(LOC) 5N.1C; GLUCOSE,POINT OF CARE 133 MG/DL (70-110)
[2022-07-03 21:52] LABS: GLUCOMETER DEV NAME(LOC) 6N.1; GLUCOSE,POINT OF CARE 162 MG/DL (70-110)
[2022-07-04 05:33] VITALS: BP 127/74
[2022-07-04] MEDS: METOCLOPRAMIDE HCL 5 MG/ML 2 ML VIAL IVP SCH ×3 (06:25→17:56)
[2022-07-04 08:10] VITALS: BP 113/67
[2022-07-04] MEDS: MULTIVITAMINS WITH MINERALS, THERAPEUTIC 15 ML UDCUP NG SCH (09:31)
[2022-07-04] MEDS: PANTOPRAZOLE SODIUM 40 MG/VIAL IVP SCH ×2 (09:31→20:59)
[2022-07-04] MEDS: DOCUSATE SODIUM 100 MG/10 ML LIQUID UDCUP JT SCH ×3 (09:31→21:00)
[2022-07-04] MEDS: THIAMINE 100 MG TABLET NG SCH (09:32)
[2022-07-04] MEDS: ETHYL ALCOHOL 62% ANTISEPTIC NASAL SANITIZER 0.6 ML AMPUL NASAL SCH ×2 (09:32→23:10)
[2022-07-04 11:20] LABS: GLUCOMETER DEV NAME(LOC) 6N.1; GLUCOSE,POINT OF CARE 119 MG/DL (70-110)
[2022-07-04 16:19] VITALS: BP 103/63
[2022-07-04 19:56] VITALS: BP 91/59
[2022-07-05] MEDS: METOCLOPRAMIDE HCL 5 MG/ML 2 ML VIAL IVP SCH ×5 (00:06→23:53)
[2022-07-05 01:51] LABS: GLUCOMETER DEV NAME(LOC) 6N.2B; GLUCOSE,POINT OF CARE 144 MG/DL (70-110)
[2022-07-05 04:04] VITALS: BP 111/69
[2022-07-05 06:22] LABS: GLUCOMETER DEV NAME(LOC) 6N.1; GLUCOSE,POINT OF CARE 110 MG/DL (70-110)
[2022-07-05] MEDS: PANTOPRAZOLE SODIUM 40 MG/VIAL IVP SCH ×2 (08:46→21:17)
[2022-07-05] MEDS: MULTIVITAMINS WITH MINERALS, THERAPEUTIC 15 ML UDCUP NG SCH (08:46)
[2022-07-05] MEDS: THIAMINE 100 MG TABLET NG SCH (08:46)
[2022-07-05] MEDS: DOCUSATE SODIUM 100 MG/10 ML LIQUID UDCUP JT SCH (08:47)
[2022-07-05] MEDS: ETHYL ALCOHOL 62% ANTISEPTIC NASAL SANITIZER 0.6 ML AMPUL NASAL SCH ×2 (08:47→21:18)
[2022-07-05 13:21] LABS: GLUCOMETER DEV NAME(LOC) 6N.1; GLUCOSE,POINT OF CARE 123 MG/DL (70-110)
[2022-07-05 16:57] VITALS: BP 106/64
[2022-07-05 20:00] VITALS: BP 98/63
[2022-07-05] MEDS: DOCUSATE SODIUM 100 MG CAPSULE PO SCH ×2 (21:00→21:17)
[2022-07-05 21:06] LABS: GLUCOMETER DEV NAME(LOC) 6N.1; GLUCOSE,POINT OF CARE 92 MG/DL (70-110)
[2022-07-06] MEDS: METOCLOPRAMIDE HCL 5 MG/ML 2 ML VIAL IVP SCH (05:55)
[2022-07-06 07:11] LABS: GLUCOMETER DEV NAME(LOC) 6N.2B; GLUCOSE,POINT OF CARE 111 MG/DL (70-110)
[2022-07-06 07:58] VITALS: BP 115/75
[2022-07-06] MEDS: THIAMINE 100 MG TABLET NG SCH (08:40)
[2022-07-06] MEDS: MULTIVITAMINS WITH MINERALS, THERAPEUTIC TABLET PO SCH (08:40)
[2022-07-06] MEDS: DOCUSATE SODIUM 100 MG CAPSULE PO SCH ×2 (08:40→20:28)
[2022-07-06] MEDS: ETHYL ALCOHOL 62% ANTISEPTIC NASAL SANITIZER 0.6 ML AMPUL NASAL SCH ×2 (08:41→20:29)
[2022-07-06] MEDS: PANTOPRAZOLE SODIUM 40 MG/VIAL IVP SCH (08:41)
[2022-07-06 11:41] LABS: GLUCOMETER DEV NAME(LOC) 6N.2B; GLUCOSE,POINT OF CARE 155 MG/DL (70-110)
[2022-07-06 16:11] VITALS: BP 102/63
[2022-07-06 19:52] VITALS: BP 105/64
[2022-07-06 20:11] LABS: GLUCOMETER DEV NAME(LOC) 6N.1; GLUCOSE,POINT OF CARE 134 MG/DL (70-110)
[2022-07-06] MEDS: PANTOPRAZOLE SODIUM 40 MG DR TABLET PO SCH (20:28)
[2022-07-06 21:41] LABS: GLUCOMETER DEV NAME(LOC) 6N.1; GLUCOSE,POINT OF CARE 137 MG/DL (70-110)
[2022-07-07 04:45] VITALS: BP 101/66
[2022-07-07 06:36] LABS: GLUCOMETER DEV NAME(LOC) 6N.2B; GLUCOSE,POINT OF CARE 125 MG/DL (70-110)
[2022-07-07 08:01] VITALS: BP 111/68
[2022-07-07 08:03] VITALS: BP 114/72
[2022-07-07] MEDS: PANTOPRAZOLE SODIUM 40 MG DR TABLET PO SCH ×2 (08:57→19:53)
[2022-07-07] MEDS: DOCUSATE SODIUM 100 MG CAPSULE PO SCH ×2 (08:57→19:53)
[2022-07-07] MEDS: THIAMINE 100 MG TABLET NG SCH (08:57)
[2022-07-07] MEDS: MULTIVITAMINS WITH MINERALS, THERAPEUTIC TABLET PO SCH (08:57)
[2022-07-07] MEDS: ETHYL ALCOHOL 62% ANTISEPTIC NASAL SANITIZER 0.6 ML AMPUL NASAL SCH ×2 (08:58→19:53)
[2022-07-07 15:28] VITALS: BP 105/68
[2022-07-07 19:21] LABS: GLUCOMETER DEV NAME(LOC) 6N.1; GLUCOSE,POINT OF CARE 101 MG/DL (70-110)
[2022-07-07 19:21] LABS: GLUCOMETER DEV NAME(LOC) 6N.1; GLUCOSE,POINT OF CARE 160 MG/DL (70-110)
[2022-07-07 19:40] VITALS: BP 101/67
[2022-07-07 23:36] LABS: GLUCOMETER DEV NAME(LOC) 6N.1; GLUCOSE,POINT OF CARE 119 MG/DL (70-110)
[2022-07-08 05:30] VITALS: BP 116/75
[2022-07-08 07:27] LABS: GLUCOMETER DEV NAME(LOC) 6N.1; GLUCOSE,POINT OF CARE 110 MG/DL (70-110)
[2022-07-08 07:57] VITALS: BP 98/63
[2022-07-08] MEDS: DOCUSATE SODIUM 100 MG CAPSULE PO SCH ×2 (09:00→20:20)
[2022-07-08] MEDS: MULTIVITAMINS WITH MINERALS, THERAPEUTIC TABLET PO SCH (09:01)
[2022-07-08] MEDS: PANTOPRAZOLE SODIUM 40 MG DR TABLET PO SCH ×2 (09:01→20:20)
[2022-07-08] MEDS: ETHYL ALCOHOL 62% ANTISEPTIC NASAL SANITIZER 0.6 ML AMPUL NASAL SCH ×2 (09:01→20:20)
[2022-07-08] MEDS: THIAMINE 100 MG TABLET NG SCH (09:01)
[2022-07-08 15:26] VITALS: BP 96/57
[2022-07-08] MEDS: ACETAMINOPHEN 325 MG TABLET PO PRN (15:50)
[2022-07-08 19:24] VITALS: BP 92/62
[2022-07-08 19:46] LABS: GLUCOMETER DEV NAME(LOC) 6N.2B; GLUCOSE,POINT OF CARE 121 MG/DL (70-110)
[2022-07-08 20:01] LABS: GLUCOMETER DEV NAME(LOC) 6N.1; GLUCOSE,POINT OF CARE 119 MG/DL (70-110)
[2022-07-09 04:13] VITALS: BP 97/72
[2022-07-09 04:21] LABS: GLUCOMETER DEV NAME(LOC) 6N.2B; GLUCOSE,POINT OF CARE 157 MG/DL (70-110)
[2022-07-09 05:36] LABS: BASOPHILS % (AUTO) 0.9 % (0.0-2.0); EOSINOPHILS % (AUTO) 4.6 % (1.0-6.0); HEMATOCRIT 29.1 % (41-53); HEMOGLOBIN 9.8 g/dL (13.5-17.5); LYMPHOCYTES # (AUTO) 2.8 K/uL (1.0-4.8); LYMPHOCYTES % (AUTO) 35.6 % (22.0-44.0); MEAN CORPUSCULAR HEMOGLOBIN 29.1 pg (26.0-34.0); MEAN CORPUSCULAR HGB CONC 33.6 G/dL (31.0-37.0); MEAN CORPUSCULAR VOLUME 87 fL (80-100); MONOCYTES # (AUTO) 0.6 K/uL (0.1-1.0); NEUTROPHILS # (AUTO) 3.9 K/uL (1.8-7.7); NEUTROPHILS % (AUTO) 50.9 % (40.0-70.0); PLATELET COUNT (AUTO) 705 K/uL (150-450); RED BLOOD CELL COUNT(AUTO) 3.36 MIL/uL (4.50-5.90); RED CELL DISTRIBUTION WIDTH 15.1 % (11.5-14.5)
[2022-07-09 05:56] LABS: ALANINE AMINOTRANSFERASE 14 U/L (12-78); ALBUMIN 2.3 g/dL (3.4-5.0); ALKALINE PHOSPHATASE 84 U/L (46-116); ANION GAP 4 mmol/L (8-16); ASPARTATE AMINOTRANSFERASE 10 U/L (15-37); BILIRUBIN,TOTAL 0.2 mg/dL (0.1-1.0); CALCIUM, TOTAL 8.9 mg/dL (8.8-10.5); CARBON DIOXIDE 30 mmol/L (22-29); CHLORIDE 105 mmol/L (98-107); CREATININE 0.77 mg/dL (0.60-1.30); GLUCOSE,RANDOM 126 mg/dL (70-110); POTASSIUM 4.6 mmol/L (3.5-5.1); SODIUM SERUM 139 mmol/L (136-145); TOTAL PROTEIN, SERUM 6.1 g/dL (6.4-8.2); UREA NITROGEN, BLOOD 15 mg/dL (7-18)
[2022-07-09 05:57] LABS: GLOMERULAR FILTR. RATE CALC > 60 mL/min (>60)
[2022-07-09 08:12] VITALS: BP 109/73
[2022-07-09 08:16] LABS: GLUCOMETER DEV NAME(LOC) 6N.2B; GLUCOSE,POINT OF CARE 126 MG/DL (70-110)
[2022-07-09] MEDS: MULTIVITAMINS WITH MINERALS, THERAPEUTIC TABLET PO SCH (08:28)
[2022-07-09] MEDS: ETHYL ALCOHOL 62% ANTISEPTIC NASAL SANITIZER 0.6 ML AMPUL NASAL SCH ×2 (08:29→20:19)
[2022-07-09] MEDS: PANTOPRAZOLE SODIUM 40 MG DR TABLET PO SCH ×2 (08:29→20:19)
[2022-07-09] MEDS: THIAMINE 100 MG TABLET NG SCH (08:29)
[2022-07-09] MEDS: DOCUSATE SODIUM 100 MG CAPSULE PO SCH ×2 (08:30→20:20)
[2022-07-09 11:41] LABS: GLUCOMETER DEV NAME(LOC) 6N.2B; GLUCOSE,POINT OF CARE 145 MG/DL (70-110)
[2022-07-09 15:43] VITALS: BP 105/66
[2022-07-09 18:21] LABS: GLUCOMETER DEV NAME(LOC) 6N.1; GLUCOSE,POINT OF CARE 155 MG/DL (70-110)
[2022-07-09 20:02] VITALS: BP 99/61
[2022-07-09 22:11] LABS: GLUCOMETER DEV NAME(LOC) 6N.2B; GLUCOSE,POINT OF CARE 179 MG/DL (70-110)
[2022-07-10 05:15] VITALS: BP 101/67
[2022-07-10] MEDS ORDERED: WATER FOR IRRIGATION,STERILE 1000 ML SOLUTION BOTTLE ONE ×2 (06:36→17:58)
[2022-07-10 08:11] VITALS: BP 113/70
[2022-07-10] MEDS: THIAMINE 100 MG TABLET NG SCH (09:47)
[2022-07-10] MEDS: ETHYL ALCOHOL 62% ANTISEPTIC NASAL SANITIZER 0.6 ML AMPUL NASAL SCH ×2 (09:47→20:23)
[2022-07-10] MEDS: PANTOPRAZOLE SODIUM 40 MG DR TABLET PO SCH ×2 (09:47→20:23)
[2022-07-10] MEDS: DOCUSATE SODIUM 100 MG CAPSULE PO SCH ×2 (09:47→20:24)
[2022-07-10] MEDS: MULTIVITAMINS WITH MINERALS, THERAPEUTIC TABLET PO SCH (09:47)
[2022-07-10 12:52] LABS: GLUCOMETER DEV NAME(LOC) 6N.1; GLUCOSE,POINT OF CARE 96 MG/DL (70-110)
[2022-07-10 13:16] LABS: GLUCOMETER DEV NAME(LOC) 6N.2B; GLUCOSE,POINT OF CARE 106 MG/DL (70-110)
[2022-07-10 14:00] VITALS: BP 106/71
[2022-07-10 19:55] VITALS: BP 110/66
[2022-07-10 20:01] LABS: GLUCOMETER DEV NAME(LOC) 6N.1; GLUCOSE,POINT OF CARE 145 MG/DL (70-110)
[2022-07-10 22:56] LABS: GLUCOMETER DEV NAME(LOC) 6N.1; GLUCOSE,POINT OF CARE 119 MG/DL (70-110)
[2022-07-11 03:02] VITALS: BP 99/68
[2022-07-11 06:16] LABS: GLUCOMETER DEV NAME(LOC) 6N.2B; GLUCOSE,POINT OF CARE 111 MG/DL (70-110)
[2022-07-11] MEDS: ETHYL ALCOHOL 62% ANTISEPTIC NASAL SANITIZER 0.6 ML AMPUL NASAL SCH (08:33)
[2022-07-11] MEDS: THIAMINE 100 MG TABLET NG SCH (08:33)
[2022-07-11] MEDS: PANTOPRAZOLE SODIUM 40 MG DR TABLET PO SCH (08:33)
[2022-07-11] MEDS: MULTIVITAMINS WITH MINERALS, THERAPEUTIC TABLET PO SCH (08:33)
[2022-07-11] MEDS: DOCUSATE SODIUM 100 MG CAPSULE PO SCH (08:33)
[2022-07-11 08:36] VITALS: BP 107/65
[2022-07-11] MEDS: ACETAMINOPHEN 325 MG TABLET PO PRN ×2 (08:38→15:42)
[2022-07-11 16:35] VITALS: BP 128/58
[2022-07-12 11:36] LABS: GLUCOMETER DEV NAME(LOC) 6N.2B; GLUCOSE,POINT OF CARE 114 MG/DL (70-110)
== END 2022-07-11 16:40 | disposition home or self-care (01) | DRG 220 ==
LOC: EMS 12:03 → 5S 23:25 → 6N 06-18 18:45 → ICU 06-21 20:05 → 5S 06-22 13:30 → 6S 06-29 06:56
PROVIDERS: ADMIT Internal Medicine; ATTEND Internal Medicine
PROC: 0DB78ZX Excision of Stomach, Pylorus, Via Natural or Artificial Opening Endoscopic, Diagnostic (ICD-10-PCS; 2022-06-15)
PROC: 0D160ZA Bypass Stomach to Jejunum, Open Approach (ICD-10-PCS; 2022-06-21)
PROC: 07BD0ZZ Excision of Aortic Lymphatic, Open Approach (ICD-10-PCS; 2022-06-21)
PROC: 0DHA0UZ Insertion of Feeding Device into Jejunum, Open Approach (ICD-10-PCS; 2022-06-21)
PROC: 07BC0ZZ Excision of Pelvis Lymphatic, Open Approach (ICD-10-PCS; 2022-06-21)
PROC: 0DB60ZZ Excision of Stomach, Open Approach (ICD-10-PCS; principal; 2022-06-21 14:10)
PROC: 30233N1 Transfusion of Nonautologous Red Blood Cells into Peripheral Vein, Percutaneous Approach (ICD-10-PCS; 2022-06-29)
DX: C16.9 Malignant neoplasm of stomach, unspecified (principal); R65.11 Systemic inflammatory response syndrome (SIRS) of non-infectious origin with acute organ dysfunction; N17.0 Acute kidney failure with tubular necrosis; E43 Unspecified severe protein-calorie malnutrition; E87.20 Acidosis, unspecified; E87.4 Mixed disorder of acid-base balance; E86.0 Dehydration; K31.1 Adult hypertrophic pyloric stenosis; D50.0 Iron deficiency anemia secondary to blood loss (chronic); E11.9 Type 2 diabetes mellitus without complications; E87.3 Alkalosis; N17.9 Acute kidney failure, unspecified; E87.6 Hypokalemia; K20.90 Esophagitis, unspecified without bleeding; K29.70 Gastritis, unspecified, without bleeding; D63.0 Anemia in neoplastic disease; Z20.822 Contact with and (suspected) exposure to COVID-19; Z60.2 Problems related to living alone; I10 Essential (primary) hypertension; E83.42 Hypomagnesemia; Z68.24 Body mass index [BMI] 24.0-24.9, adult; Z85.028 Personal history of other malignant neoplasm of stomach; Z79.899 Other long term (current) drug therapy; Z88.0 Allergy status to penicillin
CPT/HCPCS: 71045; 74177; 74246; 80048; 80053; 81001; 82040; 82271; 82550; 82962; 83036; 83540; 83550; 83605; 83690; 83735; 83880; 84075; 84100; 84132; 84484; 85007; 85014; 85018; 85025; 85027; 85610; 86850; 86900; 86901; 86923; 87040; 87081; 88305; 88309; 88341; 88342; 93005; 97162; 99291; C9113; C9290; G0378; G0480; J0690; J1100; J1170; J1885; J2250; J2270; J2370; J2405; J2704; J2765; J3010; J3411; J3475; J3480; J3490; J7030; J7040; J7050; J7060; J7120; P9016; P9041; P9047; Q9967; 36415-L1; 36415-TC; Z7610